=== PATIENT | male | born 1950 | race Caucasian/White ===

== ENCOUNTER 2018-08-19 13:14 | Day surgery (SDC) | payer BC ==
[2018-08-19 14:45] LABS: ADD MAN DIFF? NO
[2018-08-19 14:46] LABS: BASOPHILS % 0.7 % (0.0-2.0); EOSINOPHILS # 0.1 10^3/ul (0.0-0.5); EOSINOPHILS % 1.2 % (0.0-7.0); HEMATOCRIT 38.5 % (42.0-52.0); HEMOGLOBIN 13.3 g/dl (14.0-18.0); LYMPHOCYTES # 1.3 10^3/ul (0.8-2.9); LYMPHOCYTES % 31.2 % (15.0-51.0); MEAN CORPUSCULAR HEMOGLOBIN 29.6 pg (29.0-33.0); MEAN CORPUSCULAR HGB CONC 34.5 g/dl (32.0-37.0); MEAN CORPUSCULAR VOLUME 85.6 fl (82.0-101.0); MEAN PLATELET VOLUME 9.7 fl (7.4-10.4); MONOCYTE # 0.4 10^3/ul (0.3-0.9); MONOCYTES % 9.3 % (0.0-11.0); NEUTROPHIL # 2.3 10^3/ul (1.6-7.5); NEUTROPHILS % 57.4 % (39.0-77.0); PLATELET COUNT 194 10^3/UL (140-415); RED CELL DISTRIBUTION WIDTH 11.6 % (11.5-14.5)
[2018-08-19 14:46] LABS: WHITE BLOOD COUNT 4.1 10^3/ul (4.8-10.8)
[2018-08-19 14:48] LABS: HOLD TRANSMISSIONS 1
[2018-08-19 15:04] LABS: INR 0.93; PROTIME 12.6 Sec (11.9-14.9)
[2018-08-19 15:05] LABS: ANION GAP 8 (5-13); BLOOD UREA NITROGEN 15 mg/dl (7-20); CALCIUM 9.4 mg/dl (8.4-10.2); CARBON DIOXIDE 29 mmol/L (21-31); CHLORIDE 103 mmol/L (97-110); CREATININE 0.74 mg/dl (0.61-1.24); Estimated GFR > 60 mL/min (>60); GLUCOSE 117 mg/dl (70-220); POTASSIUM 4.2 mmol/L (3.5-5.1); SODIUM 140 mmol/L (135-144)
[2018-08-19] MEDS ORDERED: MIDAZOLAM 1 MG/ML 2 ML INJ (15:07)
[2018-08-19] MEDS ORDERED: LIDOCAINE 1% (MDV) 20 ML INJ (15:07)
[2018-08-19] MEDS ORDERED: HEPARIN 1000 UNITS/ML 10 ML INJ (15:07)
[2018-08-19] MEDS ORDERED: IODIXANOL LOCM 100 ML BTL (15:07)
[2018-08-19] MEDS ORDERED: FENTAnyl 50 MCG/ML VIAL (15:07)
[2018-08-19] MEDS ORDERED: VERAPAMIL 5 MG INJ (15:08)
[2018-08-19] MEDS ORDERED: NITROGLYCERIN (IC) 100 MCG/ML INJ (15:08)
[2018-08-19] MEDS ORDERED: SOD CHLORIDE 0.9% 1,000 ML IV (16:15)
== END 2018-08-19 18:12 | disposition home or self-care (01) ==
LOC: SDS 13:14
DX: I25.10 Atherosclerotic heart disease of native coronary artery without angina pectoris (principal); I10 Essential (primary) hypertension; E11.9 Type 2 diabetes mellitus without complications; Z79.82 Long term (current) use of aspirin; Z79.84 Long term (current) use of oral hypoglycemic drugs
CPT/HCPCS: 80048; 82962; 85025; 85610; 93005; 93454